=== PATIENT | female | born 1985 | race African-American/Black ===

== ENCOUNTER 2017-06-21 03:44 | Inpatient (IN) ==
[2017-06-21] MEDS ORDERED: LACTATED RINGERS 1,000 ML IV ONE (05:13)
[2017-06-21 05:19] LABS: Apearance,Urine Slightly Hazy (Clear); Bilirubin,Urine Negative (Negative); Blood, Urine Moderate mg/dL (Negative); Glucose,Urine (UA) Negative (Negative); Hyaline Casts,Urine 4 /LPF (0-3); Ketones,Urine 20 mg/dL (Negative); Mucus,Urine Many /LPF (Occasional); Nitrite,Urine Negative (Negative); Protein,Urine 30 MG/DL; RBC,Urine 258 /HPF (0-4); Squamous Epithelial Cell,Urine Occasional /HPF (0-10); Urine Color Yellow (Yellow); Urine Specific Gravity 1.014 (1.001-1.035); WBC,Urine 1 /HPF (0-6)
[2017-06-21] MEDS: LACTATED RINGERS 1,000 ML IV SCH ×2 (06:01→14:13)
[2017-06-21] MEDS ORDERED: ONDANSETRON 4 MG/2 ML VIAL ONE (09:00)
[2017-06-21] MEDS ORDERED: BUPIVACAINE SPINAL 0.75% 2 ML AMP SPINAL ONE (09:00)
--- NOTE | 2017-06-21 10:41 | Ultrasound Report ---
History: well being Date: 06/21/2017 Study: ultrasound biophysical profile Comparison exam: Limited obstetrical ultrasound May 28, 2017 available Real-time ultrasound images are captured and archived. There is a single intrauterine fetus in vertex presentation with a heart rate of 137 bpm. breathing movement, gross body movement, tone, and qualitative amniotic fluid volume are normal. Impression: Low risk for chronic asphyxia. The biophysical profile score is a normal 8 of 8 PROCEDURE INTERPRETED AT [facility] DEPARTMENT OF RADIOLOGY Final Report Signed by: Dr. Johnna Noonan
[2017-06-21] MEDS ORDERED: TERBUTALINE 1 MG/1 ML VIAL SUBCUT ONE ×2 (11:56→12:02)
--- NOTE | 2017-06-21 12:48 | Ultrasound Report ---
History: growth Date: 06/21/2017 Study: Obstetrical ultrasound greater than 14 weeks Comparison exam: May 28, 2017 study available Real-time ultrasound images are captured and archived. There is a single intrauterine fetus in vertex presentation with a heart rate of 149 bpm. The placenta is left lateral without previa. The ARELIS measures a normal 10.0 cm. Detailed anatomic survey was not performed, though no gross anatomic abnormalities are identified. No masses of the maternal myometrium are identified. The maternal ovaries not well seen because of gestation size. BPD 87 mm or 35 weeks 2 days Head circumference 314 mm or 35 weeks 2 days Abdominal circumference 314 mm or 35 weeks 3 days Femur length 68 mm or 35 weeks 0 days The fetus measures in the 36th percentile based on EFW Impression: Single intrauterine fetus in vertex presentation with an ultrasound gestational age of 35 weeks 2 days +/- 17 days, JOSUE July 24, 2017, and EFW 2626 g +/- 393 g. motion and cardiac activity are noted during real-time sonography PROCEDURE INTERPRETED AT [facility] DEPARTMENT OF RADIOLOGY Final Report Signed by: Dr. Johnna Noonan
[2017-06-21] MEDS ORDERED: CITRIC ACID/SODIUM CITRATE 30 ML UDCUP PO ONE (13:31)
[2017-06-21] MEDS ORDERED: FAMOTIDINE 20 MG/2 ML VIAL IV ONE (13:31)
[2017-06-21] MEDS ORDERED: ceFAZolin 2,000 MG in PREMIX 1 EACH IV ONE (13:31)
[2017-06-21] MEDS ORDERED: OXYTOCIN/LR 20 UNIT/1,000 ML BAG IV ONE ×2 (13:59→19:32)
[2017-06-21 14:21] LABS: Basophils % 0.2 % (0.0-0.8); Eosinophils % 0.2 % (0.00-10.9); Hematocrit 33.7 VOL% (35.7-47.0); Hemoglobin 10.9 GM/DL (12.0-16.0); Immature Granulocytes % 1.2 %; Immature Granulocytes Absolute 0.14 #; Lymphocytes # 2.1 10*3/uL (1.4-4.0); Lymphocytes % 18.3 % (21.3-54.2); Mean Corpuscular HGB Conc 32.3 GM/DL (32-36); Mean Corpuscular Hemoglobin 24 PG (27-34); Mean Corpuscular Volume 72.9 FL (87-102); Mean Platelet Volume 10.2 FL (9.6-12.0); Monocytes # 1.2 10*3/uL (0.11-0.8); Monocytes % 10.7 % (1.7-12.7); Neutrophils % 69.4 % (38.7-73.9); Platelet Count 292 T/CUMM (130-400); Red Blood Count 4.62 MC/CUMM (3.8-5.5); Red Cell Distribution Width 16.5 % (9.3-17.3); White Blood Count 11.5 T/CUMM (4-12)
[2017-06-21 14:40] LABS: Albumin 2.8 G/DL (3.4-5.0); Bilirubin,Total 0.6 MG/DL (0.2-1.0); Calcium 8.7 MG/DL (8.5-10.1); Osmolality,Calculated 271.5 MOS/KG (273-304); Potassium 3.6 MMOL/L (3.5-5.1); Total Protein 6.5 G/DL (6.4-8.3)
--- NOTE | 2017-06-21 15:11 | OB/GYN History & Physical ---
History of Present Illness History of present illness: Ms. Celaya is a 32 year old female Pt. 32y/o JOSUE 07/21/2017 @ 35+5 WKS h/o previous c/s x2 presents to labor and delivery with complaints of contractions and bleeding which started at 3am. Pt. denies any leakage of fluid or decreased movement. Pt. [facility] with [facility]. Leong and complicated by obesity, gestational diabetes diet controlled and fibroid uterus. 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 - Constitutional Vitals: Vital Signs Temp Pulse Resp BP Pulse Ox 06/21/17 04:00 97.3 F L 86 18 138/63 99 General appearance: mild distress - Antepartum / Post Antepartum Exam Cervix - Dilatation: fingertip Effacement: 50% Station: -3 Rupture: intact, blood in the vaginal vault Heart Rate: reactive, category 1 tracing, toco every 2-3 minutes - Respiratory Respiratory exam: Present: clear to auscultation bilaterally - Cardiovascular Cardiovascular exam: Present: regular rate and rhythm - GI/Abdominal GI/Abdominal exam: Present: normal bowel sounds - Extremities Exam Extremities exam: Present: normal inspection Assessment and Plan (1) labor in third trimester Status: Acute Assessment and plan: 1. admit to labor and delivery 2. labs 3. continuous external monitoring 4. ivfs 5. pt. counseled regarding early labor and recommendation to proceed with delivery. Pt. expressed her understanding and wishes to proceed. risk of the procedure explained to the patient including bleeding, infection, bowel or bladder injury, hysterectomy, etc and patient expressed her understanding. all questions answered. Pt. states that she wants her "tubes tied" however there is no documentation in the patient's record regarding her counseling and no consent seen. I spoke with Dr. Leong who states he can not at this time confirm she signed tubal papers. Current Visit: Yes (2) Fibroid uterus Status: Acute Current Visit: Yes (3) Obesity Status: Acute Current Visit: Yes (4) previous x 2 Status: Acute Current Visit: Yes Results - Labs CBC & BMP: 06/21/17 13:55 06/21/17 13:55
--- NOTE | 2017-06-21 15:14 | Operative Note ---
Date of procedure: 06/21/17 Pre-op diagnosis: 32y/o @ 35+5wks with previous c/s x 2, GDM1, fibroids in labor Post-op diagnosis: same Procedure: PROCEDURE: Repeat Delivery X 3 FINDINGS: A living Female infant, vertex , MELANIA position, weight 6lbs 11oz, scores 8 and 9, time 1534, nuchal cord x 1, cord around right arm x 1, dense adhesions on the posterior aspect of uterus, multiple 2-3cm fibroids subserosal and pedunculated noted fundal and posterior aspect of uterus, lower uterine segment dehiscence- 2cm. DESCRIPTION OF PROCEDURE: The patient was brought to the operating room after her spinal preparation, and Thomas had been performed. The abdomen was prepped and draped in the normal sterile fashion and tested for analgesia. When found to be adequate, a low-abdominal Pfannenstiel incision was made with the first knife and carried down to the fascia with the bovie. The fascia was cleared of subcutaneous tissue. Bleeding points were clamped with hemostats and Bovie coagulated. The fascia was incised in the midline and extended laterally with curved Hand scissors. Dense adhesions carefully lysed. Vladimir clamps were placed on the fascial edge, anteriorly. The rectus muscles were by sharp dissection. The rectus muscles were divided in the midline by sharp dissection. The parietoperitoneum was grasped with hemostats and carefully entered and the incision extended with Metzenbaum scissors. The bladder blade was inserted. The visceroperitoneum was grasped with smooth pickups, entered with Metzenbaum scissors, and extended laterally. The bladder flap was created by gentle blunt dissection and placed behind the bladder blade. The lower uterine segment was noted to have a 2cm dehiscence at the previous scar, it was carefully incised with a scalpel and extended laterally bluntly. A living female was delivered atraumatically from the vertex presentation. The baby was suctioned and cried immediately, and was handed to the pediatric team in attendance. The placenta was delivered with gentle uterine massage. The uterus was explored with a wet lap sponge and found to be clear of membranes. The angles of the incision were sutured 0 vicryl in a locked running fashion. Hemostasis was carefully checked and found to be satisfactory. The fallopian tubes and ovaries were inspected and found to be normal bilaterally. Interceed was then placed over the uterine incision. The peritoneum was approximated using 2. 0 chromic in a running fashion. The muscle was reapproximated using 2.0 chromic in an interrupted fashion. The fascia was closed with 0-Vicryl in a running fashion. The subcutaneous tissue was approximated with interrupted 2-0 plain catgut. The skin was closed in a subcuticular fashion with 4.0 monocryl. The patient was transferred to the recovery room in good condition. Anesthesia: spinal Surgeon / Physician: Danyelle Meza Estimated blood loss: other (700cc) Specimens: other (placenta, cord, membranes) Condition: stable Disposition: floor Results - Labs CBC & BMP: 06/21/17 13:55 06/21/17 13:55 Discharge Plan - Discharge Medications No Action No Known Home Medications [No Known Home Medications] - Follow Up or Referral - Forms/Instructions
[2017-06-21] MEDS ORDERED: ONDANSETRON 4 MG/2 ML VIAL IV PRN (16:03)
[2017-06-21] MEDS ORDERED: diphenhydrAMINE 50 MG/1 ML VIAL IV PRN (16:03)
[2017-06-21] MEDS ORDERED: hydrOXYzine HCL 25 MG/1 ML VIAL IM PRN (16:03)
[2017-06-21] MEDS ORDERED: TISSUE ADHESIVE 1 EACH APPLICATOR TOP ONE (16:15)
[2017-06-21] MEDS ORDERED: fentaNYL 100 MCG/2 ML VIAL ONE (16:33)
[2017-06-21] MEDS ORDERED: MIDAZOLAM 2 MG/2 ML VIAL ONE (16:34)
[2017-06-21 16:39] LABS: Cord Arterial Blood HCO3 23.8 MMOL/L
[2017-06-21 16:42] LABS: Cord Venous Blood HCO3 22.4 MMOL/L; Cord Venous Blood PCO2 40.4 MMHG
--- NOTE | 2017-06-21 16:43 | Anesthesia Post-Op ---
Anesthesia Post OP - Post Ansesthetic Evaluation Patient seen in post op: Yes Resp: within normal limits CV: within normal limits Mental: within normal limits Temp: within normal limits [id number]: within normal limits Nausea and Vomiting: within normal limits Pain: within normal limits
[2017-06-21] MEDS: HYDROmorphone 2 MG/1 ML VIAL IV PRN ×2 (18:32→20:39)
[2017-06-21] MEDS ORDERED: oxyCODONE/ACETAMINOPHEN 5-325 MG TABLET PO PRN (21:22)
[2017-06-21] MEDS ORDERED: ceFAZolin 2,000 MG in PREMIX 1 EACH IV SCH (21:30)
[2017-06-21 22:03] LABS: Basophils % 0.2 % (0.0-0.8); Eosinophils % 0.2 % (0.00-10.9); Hematocrit 33.6 VOL% (35.7-47.0); Hemoglobin 10.7 GM/DL (12.0-16.0); Immature Granulocytes % 0.7 %; Immature Granulocytes Absolute 0.09 #; Lymphocytes # 2.3 10*3/uL (1.4-4.0); Lymphocytes % 17.5 % (21.3-54.2); Mean Corpuscular HGB Conc 31.8 GM/DL (32-36); Mean Corpuscular Hemoglobin 23 PG (27-34); Mean Corpuscular Volume 73.2 FL (87-102); Mean Platelet Volume 10.3 FL (9.6-12.0); Monocytes # 1.5 10*3/uL (0.11-0.8); Monocytes % 11.6 % (1.7-12.7); Neutrophils % 69.8 % (38.7-73.9); Platelet Count 277 T/CUMM (130-400); Red Blood Count 4.59 MC/CUMM (3.8-5.5); Red Cell Distribution Width 16.4 % (9.3-17.3); White Blood Count 12.9 T/CUMM (4-12)
[2017-06-21] MEDS: ceFAZolin 2,000 MG in PREMIX 1 EACH IV SCH (23:21)
[2017-06-22] MEDS: HYDROmorphone 2 MG/1 ML VIAL IV PRN ×2 (00:04→02:31)
[2017-06-22] MEDS: SIMETHICONE CHEW 80 MG TABLET PO PRN ×4 (03:53→23:48)
[2017-06-22] MEDS: oxyCODONE/ACETAMINOPHEN 5-325 MG TABLET PO PRN ×4 (05:45→23:48)
[2017-06-22 06:53] LABS: Basophils # 0.1 10*3/uL (0.0-0.2); Basophils % 0.2 % (0.0-0.8); Hematocrit 37.1 VOL% (35.7-47.0); Hemoglobin 12.2 GM/DL (12.0-16.0); Immature Granulocytes Absolute 0.22 #; Lymphocytes % 4.2 % (21.3-54.2); Mean Corpuscular HGB Conc 32.9 GM/DL (32-36); Mean Corpuscular Hemoglobin 24 PG (27-34); Mean Corpuscular Volume 71.9 FL (87-102); Mean Platelet Volume 10.6 FL (9.6-12.0); Monocytes # 2.2 10*3/uL (0.11-0.8); Monocytes % 9.6 % (1.7-12.7); Neutrophils # 19.4 10*3/uL (1.4-7.4); Platelet Count 310 T/CUMM (130-400); Red Blood Count 5.16 MC/CUMM (3.8-5.5); Red Cell Distribution Width 16.8 % (9.3-17.3); White Blood Count 22.8 T/CUMM (4-12)
[2017-06-22 07:13] LABS: Band Neutrophils 7 % (0-10); Hypochromasia 1+; Lymphocytes 7 % (20-55); Microcytosis 1+; Ovalocytes Slight; Platelet Estimate Normal; Segmented Neutrophils 79 % (50-85); Total Cells Counted 100
[2017-06-22] MEDS: ceFAZolin 2,000 MG in PREMIX 1 EACH IV SCH ×2 (07:59→15:30)
[2017-06-22] MEDS: MAGNESIUM HYDROXIDE SUSP 30 ML UDCUP PO PRN ×2 (08:57→23:48)
[2017-06-22] MEDS: BISACODYL 10 MG SUPP RECTAL PRN (12:13)
--- NOTE | 2017-06-22 12:59 | OB/GYN Progress Note ---
Assessment and Plan (1) labor in third trimester Status: Acute Assessment and plan: 1. ambulate 2. cont. antibiotics 3. incentive spirometer 4. 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 seen by bedside, complains of gas pain. Pt. denies any chest pain, dizziness or weakness, no palpitations. 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 - Constitutional Vitals: Vital Signs Temp Pulse Resp BP Pulse Ox 06/22/17 08:00 97.1 F L 90 21 116/70 96 06/22/17 04:00 98.2 F 104 H 18 139/78 96 06/22/17 03:00 18 06/22/17 02:00 18 06/22/17 01:00 18 06/22/17 00:00 98.9 F 94 H 18 141/84 95 06/21/17 20:25 98.9 F 85 18 139/86 98 06/21/17 20:00 97.1 F L 81 17 126/57 99 General appearance: mild distress - Respiratory Respiratory exam: Present: clear to auscultation bilaterally - Cardiovascular Cardiovascular exam: Present: regular rate and rhythm - GI/Abdominal GI/Abdominal exam: Present: normal bowel sounds - Extremities Exam Extremities exam: Present: normal inspection - Psychiatric Psychiatric exam: Present: normal affect, normal mood Results - Labs CBC & BMP: 06/22/17 06:36 06/21/17 13:55
[2017-06-22] MEDS: IBUPROFEN 800 MG TABLET PO PRN (17:42)
[2017-06-23] MEDS: IBUPROFEN 800 MG TABLET PO PRN (03:28)
[2017-06-23] MEDS: MAGNESIUM HYDROXIDE SUSP 30 ML UDCUP PO PRN ×2 (08:36→20:04)
[2017-06-23] MEDS: SIMETHICONE CHEW 80 MG TABLET PO PRN ×3 (08:37→20:05)
[2017-06-23] MEDS: oxyCODONE/ACETAMINOPHEN 5-325 MG TABLET PO PRN ×3 (08:39→20:04)
[2017-06-23] MEDS ORDERED: KETOROLAC 30 MG/1 ML VIAL IM PRN (09:45)
--- NOTE | 2017-06-23 09:57 | OB/GYN Progress Note ---
Assessment and Plan (1) deliv due to previous difficult deliv, deliv, curr hospitaliz Status: Acute Assessment and plan: Continue supportive care, probable discharge tomorrow Current Visit: Yes (2) Pain of left calf Status: Acute Assessment and plan: Clinical exam negative, venous doppler today. 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 He does not feel ready to go home. 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 - Constitutional Vitals: Vital Signs Temp Pulse Resp BP Pulse Ox 06/23/17 07:48 97.6 F 86 20 130/68 96 06/23/17 04:00 97.2 F L 91 H 18 133/80 98 06/23/17 02:00 18 06/23/17 00:58 18 06/23/17 00:00 97.1 F L 91 H 18 125/69 06/22/17 20:00 98.1 F 90 18 122/70 98 06/22/17 16:00 98.6 F 96 H 20 134/77 96 06/22/17 12:20 97.8 F 100 H 20 134/71 96 General appearance: no acute distress - Head Head exam: Present: normal inspection - Neck Neck exam: Present: normal inspection - Respiratory Respiratory exam: Present: clear to auscultation bilaterally - Cardiovascular Cardiovascular exam: Present: regular rate and rhythm - GI/Abdominal GI/Abdominal exam: Present: soft. Absent: tenderness - Extremities Exam Extremities exam: Present: calf tenderness - Back Exam Back exam: Present: normal inspection - Neurological Exam Neurological exam: Present: alert, oriented X3 - Psychiatric Psychiatric exam: Present: normal affect, normal mood - Skin Skin exam: Present: normal color, warm, dry Results - Labs CBC & BMP: 06/22/17 06:36 06/21/17 13:55
--- NOTE | 2017-06-23 11:12 | Ultrasound Report ---
Venous Doppler ultrasound bilateral lower extremities Indication: Palpable tender abnormality Comparison: None available Findings: No evidence of echogenic, noncompressible thrombus seen in the visualized veins of the extremities. Color Doppler venous waveform pattern is within normal limits. Small cyst is seen in the left popliteal fossa 1.0 x 0.8 x 0.66 cm in size. Impression: No evidence of deep venous thrombosis. Small popliteal fossa cyst. Ultrasound images stored and captured. PROCEDURE INTERPRETED AT [facility] DEPARTMENT OF RADIOLOGY Final Report Signed by: Dr. Sav David
[2017-06-24] MEDS: SIMETHICONE CHEW 80 MG TABLET PO PRN ×2 (01:48→08:33)
[2017-06-24] MEDS: BISACODYL 10 MG SUPP RECTAL PRN (01:51)
[2017-06-24] MEDS: oxyCODONE/ACETAMINOPHEN 5-325 MG TABLET PO PRN ×2 (03:57→08:33)
[2017-06-24] MEDS ORDERED: MAGNESIUM CITRATE 300 ML BOTTLE PO ONE (08:26)
[2017-06-24] MEDS ORDERED: IBUPROFEN 800 MG TABLET PO PRN (08:29)
[2017-06-24] MEDS ORDERED: IBUPROFEN 800 MG TABLET ONE (08:30)
[2017-06-24] MEDS: MAGNESIUM HYDROXIDE SUSP 30 ML UDCUP PO PRN (08:32)
--- NOTE | 2017-06-24 11:18 | Pathology Report from [facility] ---
[facility] ACCESSION # : [id number] PATIENT NAME : Phi Celaya ORDERING DR : Danyelle Meza MD CLINICAL HX: IUP @ 35.5 wks gestation, repeat C/S for labor POST-OP DX: Same SPECIMEN INFO: Placenta GROSS DESCRIPTION: Received fresh labeled with the patients name and consists of a 456 gram placenta which measures 16.3 x 14.9 cm x up to 2.9 cm. The membranes are pink-gonzalez and tranluscent with adherent clotted blood present. The umbilical cord is eccentrically inserted, contains three vessels, edematous and measures 13.0 cm. The surface is blue-dunbar with hemorrhagic fluid filled cysts present measuring approximately 0.8 x 1.5 cm. The maternal surface is hemorrhagic with moderately disrupted cotyledons with an area of adherent clotted blood present. No gross abnormalities on sectioning. Sections submitted: A membranes and cord, B and maternal surfaces. DIAGNOSIS FOR PHI CELAYA: PLACENTA: Average placental weight for 35.5 week gestation. Trivascular umbilical cord. Unremarkable membranes. Subchorionic fibrin deposition, small placental infarction, dystrophic calcification. COLLECTED DATE: 06/23/2017 [facility] REPORT DATE: 06/24/2017 ELECTRONICALLY SIGNED BY: Magno Collier III, M.D. 06/24/2017 - 10:11:01 MIS
[2017-06-24] MEDS ORDERED: DIPH/TET/ACEL PERT BOOSTER VACCINE 0.5 ML VIAL IM ONE ×2 (15:40→15:47)
[2017-06-24 16:26] VITALS: BP 120/60
--- NOTE | 2017-06-24 17:05 | Discharge Summary ---
Hospital Course - Hospital Course Hospital Course: Pt. 32y/o JOSUE 07/21/2017 @ 35+5 WKS h/o previous c/s x2 presents to labor and delivery with complaints of contractions and bleeding which started at 3am. Pt. denies any leakage of fluid or decreased movement. Pt. care with [facility]. Leong and complicated by obesity, gestational diabetes diet controlled and fibroid uterus that proceeded with a repeat section. She is breast and bottle feeding. She denies any problems and is being discharged home. Diagnosis - Discharge Diagnosis (1) Status post repeat low transverse section Status: Resolved (2) Anemia Status: Resolved (3) Fibroid uterus Status: Resolved (4) previous x 2 Status: Resolved (5) delivery Status: Resolved Specialty Discharge - Follow Up or Referrals Follow up with: Chip Leong DO [Physician] - 07/09/17 11:00 am Discharge Plan - Discharge Data Disposition: Disch To Home/Self Care Condition at Discharge: Stable Discharge Diet: advance to your usual diet Activity: resume usual activities as tolerated Hygiene: no restrictions Weight Bearing at Discharge: full weight bearing Driving: not for (2 weeks) Contact your physician if you experience:: fever over 101, Difficulty voiding, Redness or swelling, Nausea/Vomiting, Shortness of breath, Bleeding, pain uncontrolled by pain medications - Discharge Medications No Action No Known Home Medications [No Known Home Medications] - Follow Up or Referral Follow Up: Chip Leong DO [Physician] - 07/09/17 11:00 am - Forms/Instructions Instructions: Section (DC), Depression (GEN), Perineal Care (DC), Bleeding (DC) Exam - Constitutional Vitals: Period Temp Pulse Resp BP Sys/Herman Pulse Ox Last 24 Hr 96.9 F-97.7 F 69-95 18-20 110-146/60-90 96-99 General appearance: no acute distress - Head Head exam: Present: normal inspection - Eye Eye exam: Present: EOMI Pupils: Present: UMAIR - ENT ENT exam: Present: normal exam - Neck Neck exam: Present: normal inspection - Respiratory Respiratory exam: Present: clear to auscultation bilaterally - Cardiovascular Cardiovascular exam: Present: regular rate and rhythm - GI/Abdominal GI/Abdominal exam: Present: normal bowel sounds (firm, midline, 3 FB below umbilicus. Incision dry and intact without redness, edema, ecchymosis, or drainage noted. Edges well approximated. Steristrips intact) - Extremities Exam Extremities exam: Present: normal inspection, normal capillary refill, full ROM - Neurological Exam Neurological exam: Present: alert, oriented X3, normal gait - Psychiatric Psychiatric exam: Present: normal affect, normal mood - Skin Skin exam: Present: normal color, warm, dry Discharge Results Procedures and tests throughout hospitalization: Laboratory Tests 06/21/17 06/21/17 06/21/17 04:00 13:55 13:55 WBC 11.5 RBC 4.62 Hgb 10.9 L Hct 33.7 L MCV 72.9 L MCH 24 L MCHC 32.3 RDW 16.5 Plt Count 292 MPV 10.2 Neut % (Auto) 69.4 Lymph % (Auto) 18.3 L King % (Auto) 10.7 Eos % (Auto) 0.2 Baso % (Auto) 0.2 Neut # (Auto) 8.0 H Lymph # (Auto) 2.1 King # (Auto) 1.2 H Eos # (Auto) 0.0 Baso # (Auto) 0.0 Total Counted Immature Gran % 1.2 Nucleated RBC % 0.0 Immature Gran # 0.14 Segmented Neutrophils Band Neutrophils Lymphocytes Monocytes Nucleated RBCs # 0.00 Platelet Estimate Immature Plt Fraction 0.0 Hypochromasia Microcytosis Ovalocytes Cord ABG pH Cord ABG pCO2 Cord ABG pO2 Cord ABG HCO3 Cord ABG Total CO2 Cord ABG Base Excess Cord VBG pH Cord VBG pCO2 Cord VBG pO2 Cord VBG HCO3 Cord VBG Total CO2 Cord VBG Base Excess Sodium 139 Potassium 3.6 Chloride 107 Carbon Dioxide 22 Anion Gap 13.6 BUN 2 L Creatinine 0.50 L GFR Calculation 188 BUN/Creatinine Ratio 4.00 L Glucose 89 Calculated Osmolality 271.5 L Calcium 8.7 Total Bilirubin 0.60 AST 15 ALT 16 Alkaline Phosphatase 135 H Total Protein 6.5 Albumin 2.8 L Globulin 3.7 H Albumin/Globulin Ratio 0.7 L Urine Color Yellow Urine Appearance Slightly hazy Urine pH 6.0 Ur Specific Silvis 1.014 Urine Protein 30 Urine Glucose (UA) Negative Urine Ketones 20 Urine Blood Moderate Urine Nitrate Negative Urine Bilirubin Negative Urine Urobilinogen 4.0 H Urine Leukocytes Negative Urine RBC 258 Urine WBC 1 Ur Squamous Epith Cells Occasional Hyaline Casts 4 Urine Mucus Many Ur Culture Indicated? Not indicated Rubella IgG Antibody Blood Type Antibody Screen 06/21/17 06/21/17 06/21/17 13:55 13:55 15:34 WBC RBC Hgb Hct MCV MCH MCHC RDW Plt Count MPV Neut % (Auto) Lymph % (Auto) King % (Auto) Eos % (Auto) Baso % (Auto) Neut # (Auto) Lymph # (Auto) King # (Auto) Eos # (Auto) Baso # (Auto) Total Counted Immature Gran % Nucleated RBC % Immature Gran # Segmented Neutrophils Band Neutrophils Lymphocytes Monocytes Nucleated RBCs # Platelet Estimate Immature Plt Fraction Hypochromasia Microcytosis Ovalocytes Cord ABG pH 7.255 Cord ABG pCO2 54.9 Cord ABG pO2 11.8 Cord ABG HCO3 23.8 Cord ABG Total CO2 25.5 Cord ABG Base Excess -4.1 Cord VBG pH Cord VBG pCO2 Cord VBG pO2 Cord VBG HCO3 Cord VBG Total CO2 Cord VBG Base Excess Sodium Potassium Chloride Carbon Dioxide Anion Gap BUN Creatinine GFR Calculation BUN/Creatinine Ratio Glucose Calculated Osmolality Calcium Total Bilirubin AST ALT Alkaline Phosphatase Total Protein Albumin Globulin Albumin/Globulin Ratio Urine Color Urine Appearance Urine pH Ur Specific Silvis Urine Protein Urine Glucose (UA) Urine Ketones Urine Blood Urine Nitrate Urine Bilirubin Urine Urobilinogen Urine Leukocytes Urine RBC Urine WBC Ur Squamous Epith Cells Hyaline Casts Urine Mucus Ur Culture Indicated? Rubella IgG Antibody 11.7 Blood Type B POSITIVE Antibody Screen Negative 06/21/17 06/21/17 06/22/17 15:34 21:38 06:36 WBC 12.9 H 22.8 H D RBC 4.59 5.16 Hgb 10.7 L 12.2 Hct 33.6 L 37.1 MCV 73.2 L 71.9 L MCH 23 L 24 L MCHC 31.8 L 32.9 RDW 16.4 16.8 Plt Count 277 310 MPV 10.3 10.6 Neut % (Auto) 69.8 85.0 H Lymph % (Auto) 17.5 L 4.2 L King % (Auto) 11.6 9.6 Eos % (Auto) 0.2 0.0 Baso % (Auto) 0.2 0.2 Neut # (Auto) 9.0 H 19.4 H Lymph # (Auto) 2.3 1.0 L King # (Auto) 1.5 H 2.2 H Eos # (Auto) 0.0 0.0 Baso # (Auto) 0.0 0.1 Total Counted 100 Immature Gran % 0.7 1.0 Nucleated RBC % 0.0 0.0 Immature Gran # 0.09 0.22 Segmented Neutrophils 79 Band Neutrophils 7 Lymphocytes 7 L Monocytes 7 Nucleated RBCs # 0.00 0.00 Platelet Estimate Normal Immature Plt Fraction 0.0 0.0 Hypochromasia 1+ Microcytosis 1+ Ovalocytes Slight Cord ABG pH Cord ABG pCO2 Cord ABG pO2 Cord ABG HCO3 Cord ABG Total CO2 Cord ABG Base Excess Cord VBG pH 7.362 Cord VBG pCO2 40.4 Cord VBG pO2 28.0 Cord VBG HCO3 22.4 Cord VBG Total CO2 23.7 Cord VBG Base Excess -2.8 Sodium Potassium Chloride Carbon Dioxide Anion Gap BUN Creatinine GFR Calculation BUN/Creatinine Ratio Glucose Calculated Osmolality Calcium Total Bilirubin AST ALT Alkaline Phosphatase Total Protein Albumin Globulin Albumin/Globulin Ratio Urine Color Urine Appearance Urine pH Ur Specific Silvis Urine Protein Urine Glucose (UA) Urine Ketones Urine Blood Urine Nitrate Urine Bilirubin Urine Urobilinogen Urine Leukocytes Urine RBC Urine WBC Ur Squamous Epith Cells Hyaline Casts Urine Mucus Ur Culture Indicated? Rubella IgG Antibody Blood Type Antibody Screen DS: Provider Date of admission: 06/21/17 13:31 Primary care physician: . No PCP Attending physician on admission: Danyelle Meza MD Consults: 06/21/17 13:31 Consult to Anesthesiology [CONS] Routine Consulting Provider: Reason for Anesthesiology: Pre-op Clearance Discharging clinician: DIANA Stuart
== END 2017-06-24 17:40 | disposition home or self-care (01) | DRG 540 ==
LOC: N.LDOUT 03:44 → N.LD 03:48 → N.OB 20:25
PROVIDERS: ADMIT Obstetrics & Gynecology; ATTEND Obstetrics & Gynecology
PROC: LDCSECT (ICD-10-PCS; 2017-06-21 15:00)